=== PATIENT | female | born 1975 | race Caucasian/White ===

== ENCOUNTER → 2025-07-02 | Outpatient (CLI) | payer MEDICAID, SELFPAY ==
[2025-07-02 10:42] LABS: Hematocrit 37.5 % (37-47); Hemoglobin 12.3 g/dL (12.0-15.0); Mean Corp Hgb Conc 32.8 g/dL (32-36); Mean Corpuscular Volume 87.4 fL (81-99); Mean Platelet Vol. 10.7 fl (6.2-12.0); Platelet Count 303 K/mm3 (150-450); RBC Distribution Width CV 13.9 % (11.6-14.6); RBC Distribution Width SD 44.4 fl (35.1-43.9); Red Blood Count 4.29 M/mm3 (4.2-5.4); White Blood Count 7.2 K/mm3 (4.4-11.0)
[2025-07-02 11:44] LABS: AST(SGOT) 35 U/L (<=31); Alanine Aminotransfer ALT/SGPT 44 U/L (<=34); Albumin, Serum 4.1 g/dL (3.5-5.0); Alkaline Phosphatase 58 U/L (35-104); Anion Gap 11 (5-15); BUN 11 mg/dL (4-19); BUN/Creat Ratio 19.9 RATIO (10-20); Calcium,Total 9.3 mg/dL (7.6-11.0); Carbon Dioxide 23.8 mmol/L (21.0-32.0); Chloride 104 mmol/L (98-108); Globulin 2.1 g/dL (2.2-4.2); Glucose 86 mg/dL (70-99); Potassium 4.3 mmol/L (3.3-5.1)
== END | disposition home or self-care (01) ==
LOC: LABSPEC 10:15
PROVIDERS: PCP Preventive Medicine Occupational Medicine; Referring Provider Nurse Practitioner Psychiatric/Mental Health; Visit Provider Nurse Practitioner Psychiatric/Mental Health
DX: F84.0 Autistic disorder (principal)
CPT/HCPCS: 80053; 85027